=== PATIENT | male | born 1950 | race Caucasian/White ===

== ENCOUNTER → 2020-11-15 13:58 | Outpatient (CLI) | payer MEDICARE, OTHER, SELFPAY ==
[2020-11-15 14:23] LABS: COVID19 -Nasal RAPID Negative (Negative)
== END ==
PROVIDERS: Visit Provider Physician Assistant
DX: Z20.822 Contact with and (suspected) exposure to COVID-19 (principal)
CPT/HCPCS: 87635

== ENCOUNTER → 2023-12-17 08:53 | Outpatient (CLI) | payer MEDICARE, OTHER, SELFPAY ==
[2023-12-17 10:11] LABS: COVID-19 CEPHEID 4-PLEX PCR POSITIVE (Negative); Influenza A - CEPHEID Flu A NEGATIVE (NEGATIVE); Influenza B - CEPHEID Flu B NEGATIVE (NEGATIVE); Respiratory Syncytial Virus Negative (Negative)
== END ==
PROVIDERS: Visit Provider Nurse Practitioner Family
DX: J02.9 Acute pharyngitis, unspecified (principal)
CPT/HCPCS: 0241U; 87070

== ENCOUNTER 2025-06-25 07:34 | Emergency (ER) | payer MEDICARE, OTHER, SELFPAY ==
[2025-06-25] VITALS (13 sets, daily range): BP systolic 101–172; BP diastolic 54–98; PULSE 77–115; RESP 16–23; TEMP 36.7; O2SAT 92–96; BMI 44.1
--- NOTE | 2025-06-25 | DI.CT.S_ITS ---
PROCEDURE: CT ABDOMEN PELVIS W CON INDICATIONS: abd pain nausea TECHNIQUE: After the administration of intravenous contrast, axial sections acquired from the lung bases to the pubic symphysis. Coronal and sagittal reformats were performed. For radiation dose reduction, the following was used: automated exposure control, adjustment of mA and/or kV according to patient size. COMPARISON: [facility], CT, ABDOMEN/PELVIS WITH CONTRAST, 03/31/2017, 21:11. FINDINGS: Image quality: Diagnostic. Lower Chest: No significant findings. ABDOMEN: Liver: No solid mass. Diffuse fatty liver infiltration is noted. Gallbladder: No radiopaque gallstones or wall thickening. Biliary ducts: No biliary dilation. Pancreas: No ductal dilation. The previously seen pancreatic tail cyst is no longer seen. Spleen: Size is within normal limits. Adrenal Glands: No adrenal nodules. Kidneys and Ureters: There is an obstructing stone seen involving the left mid ureter, which may related to 2 immediately adjacent stones, measuring up to 1 cm craniocaudal. The density is 650 Hounsfield units. There is left-sided hydroureter and hydronephrosis, with left-sided perinephric fat stranding. No right-sided hydronephrosis is seen. There is a 1 mm nonobstructing right- sided kidney stone, as on series 2, image 73. No nonobstructing left-sided kidney stones are seen. Stomach and Bowel: Normal colonic caliber, without significant wall thickening. Minimal distal colonic diverticulosis is seen, without findings of active diverticulitis. No dilated loops of small bowel are seen. A normal appendix is noted. Peritoneum: No abnormal intraperitoneal fluid. No free air. Ventral Wall: No significant ventral hernia. Abdominal Nodes: No retroperitoneal or mesenteric adenopathy by size criteria. Vessels: Aorta and inferior vena cava are normal in size. Atherosclerotic calcification is noted. PELVIS: Pelvic Organs: Unremarkable. Bladder: No bladder wall thickening, accounting for underdistention. Pelvic Nodes: No enlarged lymph nodes. Miscellaneous: No inguinal hernias are seen. Bones: No aggressive osseous abnormality. This patient has transitional lumbar anatomy. For the purposes of this examination, the level with the last pair of ribs is considered to be T12. By this numbering scheme, the S1 level is transitional and is partially lumbarized. There is a rudimentary S1-S2 disc. Focal L5-S1 degenerative change is seen. IMPRESSION: Within the left mid ureter, there is a 1 cm elongated stone versus 2 stones immediately adjacent to one another. There is associated left-sided hydroureter and hydronephrosis, with perinephric fat stranding. 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 on 06/25/2025 at 8:17 Approved by: Stevan Sanchez M.D. on 06/25/2025 at 8:22
--- NOTE | 2025-06-25 07:44 | ED.ABDPAIN ---
HPI - Abdominal Pain General Chief Complaint: Abdominal Pain Stated Complaint: Severe lower abd pain; hx kidney stone/abcess Time Seen by Provider: 06/25/25 07:38 History of Present Illness HPI narrative: 74-year-old gentleman history of type 2 diabetes hypertension dyslipidemia history of kidney stone since with gradual increase in diffuse abdominal pain radiating across the back also for the past week worse today along with nausea. His last bowel movement was a day and a half ago. He denies any fever, chills, bodyaches, urinary complaints, hematuria, rectal bleeding, chest pain, shortness of breath. Other than what is stated 14 point review of systems negative. Related Data Home Medications ?Medication ?Instructions ?Recorded ?Confirmed aspirin 81 mg chewable tablet 81 mg PO QDAY ##0 11/11/16 12/17/23 lisinopril 20 mg tablet 20 mg PO QDAY ##0 11/11/16 12/17/23 simvastatin 40 mg tablet 40 mg PO QDAY ##0 11/11/16 12/17/23 dulaglutide 3 mg/0.5 mL 3 mg SUBCUT QWEEK 03/08/21 12/17/23 subcutaneous pen injector METFORMIN ER 1,000 mg PO BID ##0 09/06/21 12/17/23 insulin glargine 100 unit/mL (3 14 unit SUBCUT BID 03/07/22 12/17/23 mL) subcutaneous pen (Lantus Solostar U-100 Insulin) tirzepatide 10 mg/0.5 mL 10 mg SUBCUT .month 06/25/25 06/25/25 subcutaneous pen injector (Erin) Previous Rx's ?Medication ?Instructions ?Recorded ipratropium bromide 21 mcg (0.03 2 spray intranasal BID PRN allergy 12/01/23 %) nasal spray symptoms #30 mL hydrocodone 5 mg-acetaminophen 325 1 tab PO Q4-6H PRN pain #20 tabs 06/25/25 mg tablet hydrocodone 5 mg-acetaminophen 325 1 tab PO Q4-6H PRN pain #20 tabs 06/25/25 mg tablet nitrofurantoin 100 mg PO Q12H 5 days #10 caps 06/25/25 monohydrate/macrocrystals 100 mg capsule (Macrobid) nitrofurantoin 100 mg PO Q12H 5 days #10 caps 06/25/25 monohydrate/macrocrystals 100 mg capsule (Macrobid) tamsulosin 0.4 mg capsule (Flomax) 0.4 mg PO DAILY #30 caps 06/25/25 Allergies Allergy/AdvReac Type Severity Reaction Status Date / Time No Known Drug Allergies Allergy Verified 06/25/25 07:54 Review of Systems Review of Systems ROS Unobtainable: All systems reviewed & are unremarkable except as noted in HPI and below Patient History Medical History Excessive daytime sleepiness Hyperlipidemia Hypertension Morbid obesity with body mass index of 40.0-49.9 Obstructive sleep apnea of adult Snoring Type 2 diabetes mellitus Social History (Updated 12/24/18 @ 11:06 by TUSHAR Cook) marital status: (to Sintia) details: lives in [place] number of children: 5 household members: spouse and children (1 adult son w/PTSD) lives independently: Yes caregiver/support person: No housing: house pets and animals: No education level: college 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 Well-developed patient, in mild distress. HEAD: Atraumatic. Normocephalic. EYES: Pupils equal round and reactive. Extraocular motions intact. No scleral icterus. No injection or drainage. ENT: Nose without bleeding, purulent drainage. Throat without erythema, tonsillar hypertrophy or exudate. Airway patent. NECK: Trachea midline. Non tender CARDIOVASCULAR: Regular rate and rhythm without murmurs, gallops, or rubs. RESPIRATORY: Clear to auscultation. Breath sounds equal bilaterally. No wheezes, rales, or rhonchi. GASTROINTESTINAL: Abdomen soft, diffuse TTP but no nr/r/g, nondistended. EXTREMITIES: No edema or joint tenderness. BACK: Nontender without deformity or crepitance. No flank tenderness. NEURO: AOx3. SKIN: No rash or erythema of visible areas Initial Vital Signs Initial Vital Signs: Vital Signs Pulse Oximetry 95 06/25/25 07:43 Course Orders Ordered: ED Orders 06/25/25 07:44 Ictotest Urine Stat Urine Microscopic Stat 06/25/25 07:49 Complete Blood Count AUTO DIFF Stat Comprehensive Metabolic Panel Stat Lipase Stat 06/25/25 07:50 CT abdomen pelvis w con Stat EKG-12 Lead Stat Lactated Ringer's (Lactated Ringers) 1,000 mls @ 1,000 mls/hr IV BOLUS ONE Stop: 06/25/25 08:49 Last Admin: 06/25/25 08:05 Dose: 1,000 mls/hr Documented By: Ondansetron HCl (Ondansetron 4 Mg/2 Ml Inj) 4 mg IV NOW PRN PRN Reason: Nausea And Vomiting Last Admin: 06/25/25 08:05 Dose: 4 mg Documented By: Ondansetron HCl (Ondansetron 4 Mg Odt) 4 mg PO NOW PRN PRN Reason: Nausea And Vomiting Discontinued Medications Ketorolac Tromethamine (Ketorolac 30 Mg/Ml Vial) 15 mg IV NOW ONE Stop: 06/25/25 07:51 Last Admin: 06/25/25 08:04 Dose: 15 mg Documented By: Vital Signs Vital signs: Vital Signs - 8 hr 06/25/25 07:43 06/25/25 07:44 06/25/25 07:44 Temperature Pulse Rate 100 H Respiratory Rate 17 Blood Pressure 172/75 H Pulse Oximetry 95 94 Oxygen Delivery Method 06/25/25 07:53 Temperature 98.1 F Pulse Rate 115 H Respiratory Rate 16 Blood Pressure 172/75 H Pulse Oximetry 94 Oxygen Delivery Method Room Air MDM - Abdominal Pain Lab Data 06/25/25 07:49 06/25/25 07:49 Labs: Lab Results 06/25/25 06/25/25 Range/Units 07:44 07:49 WBC 17.0 H (4.5-11.0) X10^3/uL RBC 4.92 (4.5-5.9) X10^6/uL Hgb 14.6 (13.5-17.5) g/dL Hct 43.6 (41-53) % MCV 88.6 (80-100) fL MCH 29.7 (26-34) PG MCHC 33.5 (30-36) % RDW 14.4 (11.6-14.8) % Plt Count 220 (150-400) X10^3/uL Neut % (Auto) 68.4 (50-75) % Lymph % (Auto) 19.5 L (25-40) % [place] % (Auto) 10.6 (3-14) % Eos % (Auto) 0.8 L (2-4) % Baso % (Auto) 0.7 (0-2) % Neut # (Auto) 00002 H (4795-5057) /uL Lymph # (Auto) 3300 (5318-2337) /uL [place] # (Auto) 1800 H (0-900) /uL Eos # (Auto) 100 (0-450) /uL Baso # (Auto) 100 (0-100) /uL Sodium 137 (137-145) mmol/L Potassium 4.3 (3.4-5.1) mmol/L Chloride 103 (98-107) mmol/L Carbon Dioxide 25 (22-32) mmol/L BUN 16 (9-20) mg/dL Creatinine 1.35 H (0.66-1.25) mg/dL Estimated GFR 55 L (>60) mL/min BUN/Creatinine Ratio 11.9 (6-22) Glucose 217 H (70-99) mg/dL Calcium 9.1 (8.4-10.2) mg/dL Total Bilirubin 0.7 (0.2-1.3) mg/dL AST 32 (17-59) IU/L ALT 28 (<50) IU/L Alkaline Phosphatase 65 (38-126) U/L Total Protein 7.9 (6.3-8.2) g/dL Albumin 4.5 (3.5-5.0) g/dL Globulin 3.4 (1.7-4.1) g/dL Albumin/Globulin Ratio 1.3 (1.0-2.8) Lipase 123 (23-300) U/L Ur Bilirubin Confirm Negative (Negative) Urine RBC 5-10/hpf H (0-5/HPF) Urine WBC 1-5/hpf (0-5/HPF) Ur Squamous Epith Cells 1-5 /hpf (0-5/HPF) Urine Bacteria Few (2-10) H (None) Ur Culture Indicated? Cult not indicated Vol Urine Centrifuged 10ml (spun) Point of care testing: Urine Dip Bedside Urine Glucose Negative Bedside Urine Bilirubin + 1 Bedside Urine Ketone ++ 40 Urine Specific [place] 1.020 Bedside Urine Occult Blood +++ Bedside Urine pH 6.0 Bedside Urine Protein +/- 15 Bedside Urine Urobilinogen - Negative Bedside Urine Nitrite - Negative Bedside Urine Leukocytes - Negative Esterase Imaging Data CT scan - abdomen/pelvis: Radiologist's Impression: Age/Sex: 74 / M Date of Service: 06/25/25 Loc: ED Accession Number: [id number] Procedure: CT abdomen pelvis w con Ordering Provider: Bob Buck D.O. PROCEDURE: CT ABDOMEN PELVIS W CON INDICATIONS: abd pain nausea TECHNIQUE: After the administration of intravenous contrast, axial sections acquired from the lung bases to the pubic symphysis. Coronal and sagittal reformats were performed. For radiation dose reduction, the following was used: automated exposure control, adjustment of mA and/or kV according to patient size. COMPARISON: [facility], CT, ABDOMEN/PELVIS WITH CONTRAST, 03/31/2017, 21:11. FINDINGS: Image quality: Diagnostic. Lower Chest: No significant findings. ABDOMEN: Liver: No solid mass. Diffuse fatty liver infiltration is noted. Gallbladder: No radiopaque gallstones or wall thickening. Biliary ducts: No biliary dilation. Pancreas: No ductal dilation. The previously seen pancreatic tail cyst is no longer seen. Spleen: Size is within normal limits. Adrenal Glands: No adrenal nodules. Kidneys and Ureters: There is an obstructing stone seen involving the left mid ureter, which may related to 2 immediately adjacent stones, measuring up to 1 cm craniocaudal. The density is 650 Hounsfield units. There is left-sided hydroureter and hydronephrosis, with left-sided perinephric fat stranding. No right-sided hydronephrosis is seen. There is a 1 mm nonobstructing right-sided kidney stone, as on series 2, image 73. No nonobstructing left-sided kidney stones are seen. Stomach and Bowel: Normal colonic caliber, without significant wall thickening. Minimal distal colonic diverticulosis is seen, without findings of active diverticulitis. No dilated loops of small bowel are seen. A normal appendix is noted. Peritoneum: No abnormal intraperitoneal fluid. No free air. Ventral Wall: No significant ventral hernia. Abdominal Nodes: No retroperitoneal or mesenteric adenopathy by size criteria. Vessels: Aorta and inferior vena cava are normal in size. Atherosclerotic calcification is noted. PELVIS: Pelvic Organs: Unremarkable. Bladder: No bladder wall thickening, accounting for underdistention. Pelvic Nodes: No enlarged lymph nodes. Miscellaneous: No inguinal hernias are seen. Bones: No aggressive osseous abnormality. This patient has transitional lumbar anatomy. For the purposes of this examination, the level with the last pair of ribs is considered to be T12. By this numbering scheme, the S1 level is transitional and is partially lumbarized. There is a rudimentary S1-S2 disc. Focal L5-S1 degenerative change is seen. IMPRESSION: Within the left mid ureter, there is a 1 cm elongated stone versus 2 stones immediately adjacent to one another. There is associated left-sided hydroureter and hydronephrosis, with perinephric fat stranding. ECG Data Interpretation: NSR HR 93 HI 182 QRS [address]-t wave change No previous EKG to compare MDM Narrative Medical decision making narrative: All lab work, vital signs, nurse triage note, medication list, previous ER visits, and all imaging studies reviewed. CT abdomen and pelvis showed left mid ureter there is a 1 cm elongated stone versus 2 stones immediately adjacent to 1 another. There is associated left-sided hydroureter and hydronephrosis with perinephric fat stranding. Patient given fluids Rocephin 2 g IV Flomax strainer. DC home on Macrobid, norco, Flomax strainer and to follow up with the urologist next week Discharge Plan Departure Patient Disposition: Home Clinical Impression: Kidney stone Instructions: DI for Kidney Stones Activity Restrictions/Additional Instructions: Return with new or worsening symptoms. Take your medicines directed. Keep hydrated. Follow up with Dr. Mathews Urologist next week call office for appointment. Prescriptions: New nitrofurantoin monohyd/m-cryst [Macrobid] 100 mg capsule 100 mg PO Q12H 5 Days Qty: 10 0RF Rx Instructions: must administer with a meal/food hydrocodone-acetaminophen 5-325 mg tablet 1 tab PO Q4-6H PRN (Reason: pain) Qty: 20 0RF tamsulosin [Flomax] 0.4 mg capsule 0.4 mg PO DAILY Qty: 30 0RF nitrofurantoin monohyd/m-cryst [Macrobid] 100 mg capsule 100 mg PO Q12H 5 Days Qty: 10 0RF Rx Instructions: must administer with a meal/food hydrocodone-acetaminophen 5-325 mg tablet 1 tab PO Q4-6H PRN (Reason: pain) Qty: 20 0RF No Action ipratropium bromide 21 mcg (0.03 %) spray,non-aerosol 2 spray intranasal BID PRN (Reason: allergy symptoms) Qty: 30 0RF Rx Instructions: administer into each nostril lisinopril 20 MG tablet 20 mg PO QDAY Qty: 0 simvastatin 40 MG tablet 40 mg PO QDAY Qty: 0 aspirin 81 MG tablet,chewable 81 mg PO QDAY Qty: 0 METFORMIN ER 1,000 mg PO BID Qty: 0 Mounjaro 10 mg/0.5 mL pen injector 10 mg SUBCUT .month Patient Comments: [NO ORIGINAL SIG] dulaglutide 3 mg/0.5 mL pen injector 3 mg SUBCUT QWEEK Lantus Solostar U-100 Insulin 100 unit/mL (3 mL) insulin pen 14 unit SUBCUT BID Referrals: Miscellaneous,Doctor, MD [Primary Care Provider, Medical] Stand Alone Forms: Patient Portal/API
--- NOTE | 2025-06-25 07:50 | EKG_ITS ---
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
[2025-06-25 07:59] LABS: Add Manual Diff / Slide Review NO; Hematocrit 43.6 % (41-53); Hemoglobin 14.6 g/dL (13.5-17.5); Lymphocytes Absolute Auto 3300 /uL (1100-4500); Mean Corpuscular HGB Conc 33.5 % (30-36); Mean Corpuscular Hemoglobin 29.7 PG (26-34); Mean Corpuscular Volume 88.6 fL (80-100); Platelet Count 220 X10^3/uL (150-400)
[2025-06-25] MEDS: KETOROLAC 30 MG/ML VIAL 15 MG IV (08:04)
[2025-06-25] MEDS: LACTATED RINGERS 1,000 ML 1000 ML IV (08:05)
[2025-06-25] MEDS: ONDANSETRON 4 MG/2 ML INJ IV (08:05)
[2025-06-25 08:10] LABS: Alanine Aminotransferase 28 IU/L (<50); Albumin 4.5 g/dL (3.5-5.0); Albumin Globulin Ratio 1.3 (1.0-2.8); Alkaline Phosphatase 65 U/L (38-126); Blood Urea Nitrogen 16 mg/dL (9-20); Calcium 9.1 mg/dL (8.4-10.2); Carbon Dioxide 25 mmol/L (22-32); Chloride 103 mmol/L (98-107); Estimated Glomerular Filt Rate 55 mL/min (>60); Globulin 3.4 g/dL (1.7-4.1); Glucose 217 mg/dL (70-99); HEMOLYSIS < 15 (0-50); Lipase 123 U/L (23-300); Potassium 4.3 mmol/L (3.4-5.1); Sodium 137 mmol/L (137-145); Total Protein 7.9 g/dL (6.3-8.2)
[2025-06-25 08:25] LABS: Ictotest Urine Negative (Negative)
[2025-06-25 08:28] LABS: Culture Indicated Urine Cult Not Indicated
[2025-06-25 08:48] LABS: Lactate (Lactic Acid) 3.5 mmol/L (0.7-2.1)
[2025-06-25] MEDS: cefTRIAXone 2,000 MG in SODIUM CHLORIDE 0.9% 100 ML 200 MG IV (09:07)
[2025-06-25] MEDS: TAMSULOSIN 0.4 MG CAPSULE PO (09:59)
[2025-06-25 10:10] LABS: Reflexed Lactate in 2 Hours Y
== END 2025-06-25 10:32 | disposition home or self-care (01) ==
PROVIDERS: Emergency Provider Family Medicine
DX: N20.0 Calculus of kidney (principal); R11.0 Nausea; Z87.442 Personal history of urinary calculi
CPT/HCPCS: 36415; 74177; 80053; 81003; 81015; 83605; 83690; 85025; 87040; 93005; 93010; 96361; 96365; 96375; 99284; J0696; J1885; J2405; Q9967

== ENCOUNTER → 2025-08-08 10:58 | Outpatient (CLI) | payer MEDICARE, OTHER, SELFPAY | PROVIDERS: Visit Provider Urology | DX: N39.0 Urinary tract infection, site not specified (principal); N20.2 Calculus of kidney with calculus of ureter | CPT/HCPCS: 87086 ==

== ENCOUNTER → 2025-08-08 13:33 | Outpatient (CLI) | payer MEDICARE, OTHER, SELFPAY ==
--- NOTE | 2025-08-08 13:34 | DI.CT.S_ITS ---
PROCEDURE: CT KIDNEY URETER BLADDER (KUB)
== END ==
LOC: CT 13:34
PROVIDERS: Visit Provider Urology
DX: N20.1 Calculus of ureter (principal); I25.10 Atherosclerotic heart disease of native coronary artery without angina pectoris
CPT/HCPCS: 74176; 87086